=== PATIENT | female | born 1965 | race Caucasian/White ===

== ENCOUNTER 2023-06-20 09:59 | Outpatient (REF) | payer OTHER, SELFPAY ==
[2023-06-20 12:07] LABS: MANUAL DIFF FLAG NO
[2023-06-20 12:13] LABS: Basophils Percent Auto 0.4 % (0-2); Eosinophils Absolute Auto 0.1 X10*3/uL (0.0-0.4); Eosinophils Percent Auto 1.7 % (0-4); Hemoglobin 13.8 g/dl (12.0-16.0); Imm Gran Abs Auto 0.01 X10*3/uL (0.00-0.03); Imm Gran Pct Auto 0.2 % (0.0-0.4); Lymphocytes Absolute Auto 2.2 X10*3/uL (1.2-4.9); Mean Corpuscular HGB Conc 33.7 g/dl (31.0-35.0); Mean Corpuscular Hemoglobin 31.1 pg (27.0-33.0); Mean Corpuscular Volume 92.3 fL (80.0-98.0); Monocytes Absolute Auto 0.4 X10*3/uL (0.1-1.2); Monocytes Percent Auto 7.8 % (2-11); Neutrophils Absolute Auto 2.6 x10*3/uL (2.0-8.3); Neutrophils Percent Auto 48.9 % (45-73); Platelet Count 373 X10*3/uL (160-400); Red Blood Count 4.44 X10*6/uL (4.20-5.50); Red Cell Distribution Width 12.2 % (11.0-16.0); White Blood Count 5.4 X10*3/uL (4.8-10.8)
[2023-06-20 12:54] LABS: Erythrocyte Sedimentation Rate 2 MM/HR (0-20)
[2023-06-21 11:59] LABS: Immunoglobulin G Subclass 1 439 mg/dL (382-929); Immunoglobulin G Subclass 2 317 mg/dL (241-700); Immunoglobulin G Subclass 3 19 mg/dL (22-178); Immunoglobulin G Subclass 4 29.7 mg/dL (4-86); Immunoglobulin G Total 825 mg/dL (600-1640)
[2023-06-21 12:24] LABS: Cyclic Citrullinated Peptide <16 UNITS
[2023-06-21 17:03] LABS: IgA 257 mg/dL (47-310); IgG 929 mg/dL (600-1640); IgM 74 mg/dL (50-300)
[2023-06-21 23:03] LABS: Immunoglobulin E 133 kU/L (<OR=114)
[2023-06-25 14:23] LABS: Anti Nuclear Antibody Screen NEGATIVE (NEGATIVE)
[2023-06-27 15:24] LABS: Asperg fumigatus Precip Abs NEGATIVE (NEGATIVE); Micropoly faeni Abs NEGATIVE (NEGATIVE); Pigeon serum Abs NEGATIVE (NEGATIVE); Saccharo pora viridis Abs NEGATIVE (NEGATIVE); Thermo candidus Abs NEGATIVE (NEGATIVE); Thermoa vulgaris #1 NEGATIVE (NEGATIVE)
== END 2023-06-20 10:00 | disposition home or self-care (01) ==
LOC: HO.LAB 09:59
PROVIDERS: PCP Internal Medicine; Visit Provider Hospitalist
DX: J18.9 Pneumonia, unspecified organism (principal); J45.909 Unspecified asthma, uncomplicated; R91.8 Other nonspecific abnormal finding of lung field; J45.40 Moderate persistent asthma, uncomplicated
CPT/HCPCS: 36415; 82784; 82785; 85025; 85652; 86003; 86038; 86200; 86331; 86606; 86609; 87070; 87205; 94640

== ENCOUNTER 2023-06-20 09:59 | Outpatient (AMB) | payer OTHER, SELFPAY ==
[2023-06-20 10:35] VITALS: BP 128/70; PULSE 63; O2SAT 100; BMI 23.9
--- NOTE | 2023-06-20 10:35 | A.OFFVIS_ITS ---
Intake Vital Signs 06/20/23 10:35 Height 5 ft Weight 122 lb 5.705 oz BMI 23.9 BP 128/70 Blood Pressure Location Lt brachial Position Sitting Pulse 63 Pulse Source Pulse Oximeter Pulse Oximetry (%) 100 Oxygen Delivery Method Room Air Intake Visit Reasons: Pneumonitis Mixing Operator Required: No Allergies amoxicillin Adverse Reaction (Severe, Verified 06/20/23 10:38) Hives HPI HPI Comments History of Present Illness Details The patient is here for pulmonary evaluation. The patient is a 58 year woman who presents with frequent pneumonia on respiratory complaints. Patient states that she was in usual state health until for the last few years she has been having off and on respiratory issues. However, the become more frequent and more severe. She was evaluated sometime in December 2022 at at [facility] for worsening respiratory symptoms. There she had a chest x-ray to demonstrating bilateral patchy airspace disease. She was given antibiotics and also prednisone. Her symptoms did improve. Few months later her symptoms started again with worsening cough shortness of breath in addition to hoarseness. At this point she went to [facility] which she did have a CTA. The CTA again confirm pneumonia. The patient again was treated this time only with prednisone. Her symptoms did improve. Now the patient has been off prednisone and she does have a rescue inhaler. The patient also had been using a nebulizer. She has been noticing for the last few days her symptoms are again returning. Feels of some chest congestion cough and hoarseness. The patient is a nonsmoker. She does state that her mom has significant bronchitis as well. Denies any new exposure to any fumes or toxins animals farms or construction or demolition. In the office we did provide her with a nebulized treatment however we were able to get an adequate specimen. Will going to go ahead and request blood work to assess her frequent bronchitis. I explained to the patient that we need to further evaluate the possibility of infectious pneumonia versus noninfectious inflammatory pneumonia such as cryptogenic organizing pneumonia. [facility] Medical History (Updated 06/20/23 @ 23:36 by Benny Fernandez MD) Asthma Pneumonia Pneumonitis Social History (Updated 06/20/23 @ 10:39 by MATHEW Lee) Patient Tobacco Use Status: Former Tobacco user Tobacco use type: Cigarette Years Smoked: 5 Years Review of Systems Const Denies body aches, Denies fatigue and Denies fever(s) ENT Reports hoarseness Card Denies chest pain Resp Reports chest congestion, Reports cough and Reports wheezing GI Reports no additional complaints Musc Reports no additional complaints Skin/Breast Denies rash Neuro Reports no additional complaints Endo Denies fatigue and Denies flushing Mu/Lymph Denies lymphadenopathy Aller/Immun Reports wheezing Physical Exam Vital Signs: Last Vital Signs Pulse 63 06/20/23 10:35 BP 128/70 06/20/23 10:35 Pulse Ox 100 06/20/23 10:35 Oxygen Delivery Method Room Air 06/20/23 10:35 BMI result Body Mass Index 23.9 Const General: comfortable HEENT Head: Yes atraumatic Neck Neck: Yes supple Chest Chest palpation & inspection: normal inspection of the chest Resp Effort & Inspection: normal respiratory effort Auscultation: no rhonchi, no wheezes and diminished lung sounds Cardio Rate: regular rate Rhythm: regular rhythm Heart sounds: S1 normal heart sound present and S2 normal heart sound present GI Inspection: Yes normal to inspection Skin General skin exam: no rashes or lesions noted Extrem General: Yes no clubbing, cyanosis or edema Office Procedures Nebulizer Treatment Nebulizer Treatment [id number]/[id number] RX initial, or Nebulizer Subsequent Treatment Office Meds levalbuterol HCl Performing Provider: Benny Fernandez MD Administered by: Lavern Cortes LPN on 06/20/23 11:11 Dose Route Admin Location Lot Number Expiration Date [employer] 1.25 mg inhalation [id number] 05/04/24 54733-623-15 sodium chloride Performing Provider: Benny Fernandez MD Administered by: Lavern Cortes LPN on 06/20/23 11:11 Dose Route Admin Location Lot Number Expiration Date [employer] 3 mL inhalation [id number] 12/05/23 [id number] [employer] Assessment & Plan Assessment & Plan (1) Pneumonitis: Code(s): J18.9 - Pneumonia, unspecified organism (2) Asthma: Code(s): J45.909 - Unspecified asthma, uncomplicated Qualifiers: Asthma severity: moderate Asthma persistence: persistent Asthma complication type: uncomplicated Qualified Code(s): J45.40 - Moderate persistent asthma, uncomplicated (3) Pneumonia: Code(s): J18.9 - Pneumonia, unspecified organism Qualifiers: Pneumonia type: due to unspecified organism Laterality: bilateral Lung location: unspecified part of lung Qualified Code(s): J18.9 - Pneumonia, unspecified organism Plan start Symbicort consider nebulizer with acapella valve for CPT MAHESH as needed Bloodwork sputum cx, consider bronchoscopy F/U 3-4 weeks Orders: Orders Cyclic Citrullinated Peptide Today J18.9 - Pneumonia, unspecified organism, J45.909 - Unspecified asthma, uncomplicated Rast Allergen Today J18.9 - Pneumonia, unspecified organism, J45.909 - Unspecified asthma, uncomplicated Complete Blood Count Auto Diff Today J18.9 - Pneumonia, unspecified organism, J4 5.909 - Unspecified asthma, uncomplicated Erythrocyte Sedimentation Rate Today J18.9 - Pneumonia, unspecified organism, J45.909 - Unspecified asthma, uncomplicated SWAPNIL Reflex Titer and Pattern Today J18.9 - Pneumonia, unspecified organism, J45.909 - Unspecified asthma, uncomplicated Hypersensitive Pneumonitis Prf Today J18.9 - Pneumonia, unspecified organism, J45.909 - Unspecified asthma, uncomplicated, R91.8 - Other nonspecific abnormal finding of lung field Immunoglobulin E Today J18.9 - Pneumonia, unspecified organism, J45.909 - Unspecified asthma, uncomplicated Immunoglobulin G Subclasses Today J18.9 - Pneumonia, unspecified organism, J45.909 - Unspecified asthma, uncomplicated Immunoglobulins,IgG IgA IgM Today J18.9 - Pneumonia, unspecified organism, J45.909 - Unspecified asthma, uncomplicated Sputum Cult + Gram stain Today J18.9 - Pneumonia, unspecified organism AMB Nebulizer Treatment Today J45.909 - Unspecified asthma, uncomplicated Medications: New budesonide-formoterol 160-4.5 mcg/actuation (Symbicort) 2 puffs inhalation BID 30 days 10.2 grams 11RF J18.9 - Pneumonia, unspecified organism, J44.9 - Chronic obstructive pulmonary disease, unspecified Coding Level of Care Code New Pt Level 4 (23088) Diagnoses Pneumonitis J18.9 Asthma J45.40 Asthma severity: moderate Asthma persistence: persistent Asthma complication type: uncomplicated Pneumonia J18.9 Pneumonia type: due to unspecified organism Laterality: bilateral Lung location: unspecified part of lung CPT Codes Nebulizer Treatment - Nebulizer Treatment, initial or subsequent: [id number] Nebulizer/MDI RX initial, or Nebulizer Subsequent Treatment ([id number]) Time Spent (min) 40
== END 2023-06-20 11:29 | disposition home or self-care (01) ==
PROVIDERS: PCP Internal Medicine; Visit Provider Hospitalist
DX: J45.909 Unspecified asthma, uncomplicated (principal)
CPT/HCPCS: 99204

== ENCOUNTER 2023-08-02 09:39 | Outpatient (REF) | payer OTHER, SELFPAY ==
--- NOTE | ~2023-08-02 | XR_ITS ---
EXAMINATION: XR CHEST CLINICAL INFORMATION: Pneumonia COMPARISON: None available. TECHNIQUE: 2 views of the chest were obtained. FINDINGS: No significant abnormality is noted involving the heart, lungs, mediastinum, bony thorax or soft tissues. XR/XR chest 2V IMPRESSION: Unremarkable examination.
== END 2023-08-02 09:40 | disposition home or self-care (01) ==
LOC: HO.XRAY 09:39
PROVIDERS: Visit Provider Hospitalist
DX: J18.9 Pneumonia, unspecified organism (principal)
CPT/HCPCS: 71046

== ENCOUNTER 2023-08-02 09:57 | Outpatient (AMB) | payer OTHER, SELFPAY ==
--- NOTE | 2023-08-02 10:07 | A.OFFVIS_ITS ---
Intake Vital Signs 08/02/23 10:12 Height 5 ft Weight 125 lb 10.616 oz BMI 24.5 BP 128/60 Blood Pressure Location Lt brachial Position Sitting Pulse 71 Pulse Source Pulse Oximeter Pulse Oximetry (%) 97 Oxygen Delivery Method Room Air Intake Visit Reasons: Pneumonitis/Covid+ Allergies amoxicillin Adverse Reaction (Severe, Verified 08/02/23 10:16) Hives HPI HPI Comments History of Present Illness Details The patient is a 58 year woman who presents with frequent pneumonia on respiratory complaints. Patient states that she was in usual state health until for the last few years she has been having off and on respiratory issues. However, the become more frequent and more severe. She was evaluated sometime in December 2022 at at [facility] for worsening respiratory symptoms. There she had a chest x-ray to demonstrating bilateral patchy airspace disease. She was given antibiotics and also prednisone. Her symptoms did improve. Few months later her symptoms started again with worsening cough shortness of breath in addition to hoarseness. At this point she went to [facility] which she did have a CTA. The CTA again confirm pneumonia. The patient again was treated this time only with prednisone. Her symptoms did improve. Now the patient has been off prednisone and she does have a rescue inhaler. The patient also had been using a nebulizer. She has been noticing for the last few days her symptoms are again returning. Feels of some chest congestion cough and hoarseness. The patient is a nonsmoker. She does state that her mom has significant bronchitis as well. Denies any new exposure to any fumes or toxins animals farms or construction or demolition. In the office we did provide her with a nebulized treatment however we were able to get an adequate specimen. Will going to go ahead and request blood work to assess her frequent bronchitis. I explained to the patient that we need to further evaluate the possibility of infectious pneumonia versus noninfectious inf lammatory pneumonia such as cryptogenic organizing pneumonia. 08/02/2023 the patient is here for a pulm onary follow-up visit. Unfortunately recently she gets sick with COVID the beginning of July. Now the patient is better overall but still having significant chest congestion chest tightness and raspiness of voice. The Symbicort has been helpful but it does cause increased hoarseness. She also has a nebulizer that she uses as needed. She does have productive cough but is whitish in clear in nature. The patient did have blood work that we personally reviewed demonstrating abnormal immune system except for slight decrease in the subclass 3 of the IgG in the patient does have an elevated IgE suggesting allergies. The patient is eosinophil levels are within normal limits and other white blood cell images are would also within normal limits. Her hypersensitivity panels negative. I could not evaluate her CT scan because the images did not open up but I did request the report and apparently it did say that the lung parenchyma was clear without any evidence of any airspace disease. Therefore much sure if she had any other imaging studies prior to that that showed that she had pneumonia. For the patient's own fairly well but she is having post COVID reactive airway disease with some wheezing on examination and likely at risk for a postviral bacterial infection. Therefore will restart her on doxycycline and she should use her nebulizer. If she is no better she will start a Medrol pack. [facility] Medical History (Updated 08/02/23 @ 20:26 by Benny Fernandez MD) Pneumonitis Asthma Pneumonia Social History (Updated 06/20/23 @ 10:39 by Socorro Rascon George) Patient Tobacco Use Status: Former Tobacco user Tobacco use type: Cigarette Years Smoked: 5 Years Review of Systems Const Denies body aches, Denies fatigue and Denies fever(s) ENT Reports hoarseness Card Denies chest pain Resp Reports change in phlegm color, Reports chest congestion, Reports cough and Reports wheezing GI Reports no additional complaints Musc Reports no additional complaints Skin/Breast Denies rash Neuro Reports no additional complaints Endo Denies fatigue and Denies flushing Mu/Lymph Denies lymphadenopathy Aller/Immun Reports wheezing Physical Exam Vital Signs: Last Vital Signs Pulse 71 08/02/23 10:12 BP 128/60 08/02/23 10:12 Pulse Ox 97 08/02/23 10:12 Oxygen Delivery Method Room Air 08/02/23 10:12 BMI result Body Mass Index 24.5 Const General: comfortable HEENT Head: Yes atraumatic Neck Neck: Yes supple Chest Chest palpation & inspection: normal inspection of the chest Resp Effort & Inspection: normal respiratory effort Auscultation: no rhonchi, wheezes and diminished lung sounds Cardio Rate: regular rate Rhythm: regular rhythm Heart sounds: S1 normal heart sound present and S2 normal heart sound present GI Inspection: Yes normal to inspection Skin General skin exam: no rashes or lesions noted Extrem General: Yes no clubbing, cyanosis or edema Assessment & Plan Assessment & Plan (1) Pneumonitis: Code(s): J18.9 - Pneumonia, unspecified organism (2) Asthma: Code(s): J45.909 - Unspecified asthma, uncomplicated Qualifiers: Asthma complication type: uncomplicated Asthma persistence: persistent Asthma severity: moderate Qualified Code(s): J45.40 - Moderate persistent asthma, uncomplicated (3) COVID-19: Code(s): U07.1 - COVID-19 Plan continue Symbicort continue nebulizer consider acapella valve for CPT MAHESH as needed start Doxycycline start Medrol if no better F/U 4-6 months Medications: New doxycycline hyclate 100 mg PO BID 10 days 20 caps 0RF methylprednisolone (Medrol (Vikram)) PO PER PKG DIR 6 days 21 ea 0RF Coding Level of Care Code Est Pt Level 4 (72908) Diagnoses Pneumonitis J18.9 Moderate persistent asthma without complication J45.40 Asthma complication type: uncomplicated Asthma persistence: persistent Asthma severity: moderate COVID-19 U07.1 Time Spent (min) 17
[2023-08-02 10:12] VITALS: BP 128/60; PULSE 71; O2SAT 97; BMI 24.5
== END 2023-08-02 10:48 | disposition home or self-care (01) ==
PROVIDERS: PCP Internal Medicine; Visit Provider Hospitalist
DX: J18.9 Pneumonia, unspecified organism (principal); J45.40 Moderate persistent asthma, uncomplicated; U07.1 COVID-19
CPT/HCPCS: 99214

== ENCOUNTER 2023-10-16 14:27 | Outpatient (AMB) | payer OTHER, SELFPAY ==
[2023-10-16 15:10] VITALS: BP 102/62; PULSE 76; O2SAT 97; BMI 25.6
--- NOTE | 2023-10-16 15:10 | MHC.OFFVIS ---
Intake Vital Signs 10/16/23 15:10 Height 5 ft Weight 131 lb 2.801 oz BMI 25.6 BP 102/62 Blood Pressure Location Lt brachial Position Sitting Pulse 76 Pulse Source Doppler Pulse Oximetry (%) 97 Oxygen Delivery Method Room Air Intake Visit Reasons: productive cough/wheeze Allergies amoxicillin Adverse Reaction (Severe, Verified 10/16/23 15:14) Hives HPI HPI Comments History of Present Illness Details The patient is a 58 year woman who presents with frequent pneumonia on respiratory complaints. Patient states that she was in usual state health until for the last few years she has been having off and on respiratory issues. However, the become more frequent and more severe. She was evaluated sometime in December 2022 at at [facility] for worsening respiratory symptoms. There she had a chest x-ray to demonstrating bilateral patchy airspace disease. She was given antibiotics and also prednisone. Her symptoms did improve. Few months later her symptoms started again with worsening cough shortness of breath in addition to hoarseness. At this point she went to [facility] which she did have a CTA. The CTA again confirm pneumonia. The patient again was treated this time only with prednisone. Her symptoms did improve. Now the patient has been off prednisone and she does have a rescue inhaler. The patient also had been using a nebulizer. She has been noticing for the last few days her symptoms are again returning. Feels of some chest congestion cough and hoarseness. The patient is a nonsmoker. She does state that her mom has significant bronchitis as well. Denies any new exposure to any fumes or toxins animals farms or construction or demolition. In the office we did provide her with a nebulized treatment however we were able to get an adequate specimen. Will going to go ahead and request blood work to assess her frequent bronchitis. I explained to the patient that we need to further evaluate the possibility of infectious pneumonia versus noninfectious inflammatory pneumonia such as cryptogenic organizing pneumonia. 08/02/2023 the patient is here for a pulmonary follow-up visit. Unfortunately recently she gets sick with COVID the beginning of July. Now the patient is better overall but still having significant chest congestion chest tightness and raspiness of voice. The Symbicort has been helpful but it does cause increased hoarseness. She also has a nebulizer that she uses as needed. She does have productive cough but is whitish in clear in nature. The patient did have blood work that we personally reviewed demonstrating abnormal immune system except for slight decrease in the subclass 3 of the IgG in the patient does have an elevated IgE suggesting allergies. The patient is eosinophil levels are within normal limits and other white blood cell images are would also within normal limits. Her hypersensitivity panels negative. I could not evaluate her CT scan because the images did not open up but I did request the report and apparently it did say that the lung parenchyma was clear without any evidence of any airspace disease. Therefore much sure if she had any other imaging studies prior to that that showed that she had pneumonia. For the patient's own fairly well but she is having post COVID reactive airway disease with some wheezing on examination and likely at risk for a postviral bacterial infection. Therefore will restart her on doxycycline and she should use her nebulizer. If she is no better she will start a Medrol pack. 10/16/2023 the patient is here for a pulmonary follow-up visit. She had been doing a tiny bit better but then started getting worse again about a week ago with increased hoarseness of the voice chest congestion raspiness of voice and she is not feeling great. She does complaint of sinus pressure. She is concerned that she is having this issue. We did talk about her immunological levels. Her immune system is strong her IgG subclass 3 is a little low but not enough to warrant any significant therapies. Her IgE suggest some degree of allergies but unlikely to be enough to cause her to have these recurrent infections. Her lungs actually sound clear it sounds to be more of a sinusitis and laryngotracheitis. The patient does respond well to Levaquin. Therefore I will send some Levaquin. She does take citalopram that she may have to cut that to half a dose while she is taking the quinolone therapy. She also is aware of the tendinitis and she will stop the medicine if she develops any time there tendons. The patient also will take probiotics to minimize C diff colitis. If she is no better that she can call we can request a CT scan of the sinuses. She may need to be evaluated by ENT as well this point specially since it appears to be more upper respiratory. [facility] Medical History (Updated 10/16/23 @ 19:30 by Benny Fernandez MD) Pneumonitis Asthma Pneumonia Social History Patient Tobacco Use Status: Former Tobacco user Tobacco use type: Cigarette Years Smoked: 5 Years Review of Systems Const Denies body aches, Denies fatigue and Denies fever(s) ENT Reports hoarseness, Reports nasal congestion, Reports nasal discharge, Reports post nasal drip, Reports sinus pain and Reports sinus pressure Card Denies chest pain Resp Reports change in phlegm color, Reports chest congestion, Reports cough and Denies wheezing GI Reports no additional complaints Musc Reports no additional complaints Skin/Breast Denies rash Neuro Reports no additional complaints Endo Denies fatigue and Denies flushing Mu/Lymph Denies lymphadenopathy Aller/Immun Denies wheezing Physical Exam Vital Signs: Last Vital Signs Pulse 76 10/16/23 15:10 BP 102/62 10/16/23 15:10 Pulse Ox 97 10/16/23 15:10 Oxygen Delivery Method Room Air 10/16/23 15:10 BMI result Body Mass Index 25.6 Const General: comfortable HEENT Head: Yes atraumatic Neck Neck: Yes supple Chest Chest palpation & inspection: normal inspection of the chest Resp Effort & Inspection: normal respiratory effort Auscultation: no rhonchi, wheezes and diminished lung sounds Cardio Rate: regular rate Rhythm: regular rhythm Heart sounds: S1 normal heart sound present and S2 normal heart sound present GI Inspection: Yes normal to inspection Skin General skin exam: no rashes or lesions noted Extrem General: Yes no clubbing, cyanosis or edema Assessment & Plan Assessment & Plan (1) Asthma: Code(s): J45.909 - Unspecified asthma, uncomplicated Qualifiers: Asthma complication type: uncomplicated Asthma persistence: persistent Asthma severity: moderate Qualified Code(s): J45.40 - Moderate persistent asthma, uncomplicated (2) Sinusitis: Code(s): J32.9 - Chronic sinusitis, unspecified Qualifiers: Sinusitis location: maxillary Chronicity: subacute Qualified Code(s): J01.00 - Acute maxillary sinusitis, unspecified Plan Start Levaquin start Pseudophed nasal rinsing with neti bottle consider CT sinuses continue Symbicort continue nebulizer consider acapella valve for CPT MAHESH as needed start Medrol if no better F/U 2-3 months Orders: Orders SARS-CoV2/FLU/RSV Today J32.9 - Chronic sinusitis, unspecified Medications: New levofloxacin 500 mg PO DAILY 14 days 14 tabs 0RF pseudoephedrine HCl ER 120 mg PO Q12H 30 days 60 tabs 1RF Coding Level of Care Code Est Pt Level 4 (29253) Diagnoses Moderate persistent asthma without complication J45.40 Asthma complication type: uncomplicated Asthma persistence: persistent Asthma severity: moderate Subacute maxillary sinusitis J01.00 Sinusitis location: maxillary Chronicity: subacute Time Spent (min) 18
== END 2023-10-16 15:38 | disposition home or self-care (01) ==
PROVIDERS: PCP Internal Medicine; Visit Provider Hospitalist
DX: J45.40 Moderate persistent asthma, uncomplicated (principal); J01.00 Acute maxillary sinusitis, unspecified
CPT/HCPCS: 99214

== ENCOUNTER 2023-10-16 14:27 | Outpatient (REF) | payer OTHER, SELFPAY ==
[2023-10-16 19:48] LABS: Influenza A PCR NEGATIVE (Negative); Influenza B PCR NEGATIVE (Negative); Resp Syncy Virus RNA Qual PCR NEGATIVE (Negative); SARS COV2 PCR INHOUSE NEGATIVE (Negative)
== END 2023-10-16 14:28 | disposition home or self-care (01) ==
LOC: CF 14:27
PROVIDERS: PCP Internal Medicine; Visit Provider Hospitalist
DX: Z11.52 Encounter for screening for COVID-19 (principal); J32.9 Chronic sinusitis, unspecified; J45.40 Moderate persistent asthma, uncomplicated; Z20.822 Contact with and (suspected) exposure to COVID-19
CPT/HCPCS: 0241U

== ENCOUNTER 2024-12-19 15:17 | Outpatient (AMB) | payer OTHER, SELFPAY ==
[2024-12-19 15:21] VITALS: BP 128/82; PULSE 78; O2SAT 98; BMI 26.5
--- NOTE | 2024-12-19 15:21 | MHC.OFFVIS ---
Vital Signs 12/19/24 15:21 Height 5 ft Weight 135 lb 9.349 oz BMI 26.5 BP 128/82 Blood Pressure Location Lt brachial Position Sitting Pulse 78 Pulse Source Pulse Oximeter Pulse Oximetry (%) 98 Oxygen Delivery Method Room Air Intake Visit Reasons: Asthma Allergies amoxicillin Adverse Reaction (Severe, Verified 12/19/24 15:23) Hives HPI Comments Details: The patient is a 59 year woman who presents with frequent pneumonia on respiratory complaints. Patient states that she was in usual state health until for the last few years she has been having off and on respiratory issues. However, the become more frequent and more severe. She was evaluated sometime in December 2022 at at [facility] for worsening respiratory symptoms. There she had a chest x-ray to demonstrating bilateral patchy airspace disease. She was given antibiotics and also prednisone. Her symptoms did improve. Few months later her symptoms started again with worsening cough shortness of breath in addition to hoarseness. At this point she went to [facility] which she did have a CTA. The CTA again confirm pneumonia. The patient again was treated this time only with prednisone. Her symptoms did improve. Now the patient has been off prednisone and she does have a rescue inhaler. The patient also had been using a nebulizer. She has been noticing for the last few days her symptoms are again returning. Feels of some chest congestion cough and hoarseness. The patient is a nonsmoker. She does state that her mom has significant bronchitis as well. Denies any new exposure to any fumes or toxins animals farms or construction or demolition. In the office we did provide her with a nebulized treatment however we were able to get an adequate specimen. Will going to go ahead and request blood work to assess her frequent bronchitis. I explained to the patient that we need to further evaluate the possibility of infectious pneumonia versus noninfectious inflammatory pneumonia such as cryptogenic organizing pneumonia. 08/02/2023 the patient is here for a pulmonary follow-up visit. Unfortunately recently she gets sick with COVID the beginning of July. Now the patient is better overall but still having significant chest congestion chest tightness and raspiness of voice. The Symbicort has been helpful but it does cause increased hoarseness. She also has a nebulizer that she uses as needed. She does have productive cough but is whitish in clear in nature. The patient did have blood work that we personally reviewed demonstrating abnormal immune system except for slight decrease in the subclass 3 of the IgG in the patient does have an elevated IgE suggesting allergies. The patient is eosinophil levels are within normal limits and other white blood cell images are would also within normal limits. Her hypersensitivity panels negative. I could not evaluate her CT scan because the images did not open up but I did request the report and apparently it did say that the lung parenchyma was clear without any evidence of any airspace disease. Therefore much sure if she had any other imaging studies prior to that that showed that she had pneumonia. For the patient's own fairly well but she is having post COVID reactive airway disease with some wheezing on examination and likely at risk for a postviral bacterial infection. Therefore will restart her on doxycycline and she should use her nebulizer. If she is no better she will start a Medrol pack. 10/16/2023 the patient is here for a pulmonary follow-up visit. She had been doing a tiny bit better but then started getting worse again about a week ago with increased hoarseness of the voice chest congestion raspiness of voice and she is not feeling great. She does complaint of sinus pressure. She is concerned that she is having this issue. We did talk about her immunological levels. Her immune system is strong her IgG subclass 3 is a little low but not enough to warrant any significant therapies. Her IgE suggest some degree of allergies but unlikely to be enough to cause her to have these recurrent infections. Her lungs actually sound clear it sounds to be more of a sinusitis and laryngotracheitis. The patient does respond well to Levaquin. Therefore I will send some Levaquin. She does take citalopram that she may have to cut that to half a dose while she is taking the quinolone therapy. She also is aware of the tendinitis and she will stop the medicine if she develops any time there tendons. The patient also will take probiotics to minimize C diff colitis. If she is no better that she can call we can request a CT scan of the sinuses. She may need to be evaluated by ENT as well this point specially since it appears to be more upper respiratory. 12/19/2024 the patient is here for a pulmonary follow-up visit. The patient has been doing well. Since we saw her she did need to take a course of Medrol and also levofloxacin for respiratory infection. That happened back in the fall. After that she did okay. The patient continues to use her respiratory inhalers as prescribed. She did have a chest x-ray last visit which demonstrated no acute disease. And prior to that she had a CT scan at [facility] which demonstrating no acute disease and no pulmonary nodules or parenchymal disease to have to follow. Therefore since the patient is doing well will follow-up in a year's time with a chest x-ray. If she has any issues prior to that she will call for an earlier assessment. [facility] Medical History (Updated 12/22/24 @ 13:45 by Benny Fernandez MD) Pneumonitis Asthma Pneumonia Social History Patient Tobacco Use Status: Former Tobacco user Tobacco use type: Cigarette Years Smoked: 5 Years Review of Systems Const Denies body aches, Denies fatigue and Denies fever(s) ENT Reports nasal congestion, Reports nasal discharge and Reports post nasal drip Card Denies chest pain Resp Reports cough and Denies wheezing GI Reports no additional complaints Musc Reports no additional complaints Skin/Breast Denies rash Neuro Reports no additional complaints Endo Denies fatigue and Denies flushing Mu/Lymph Denies lymphadenopathy Aller/Immun Denies wheezing Physical Exam Vital Signs: Last Vital Signs Pulse 78 12/19/24 15:21 BP 128/82 12/19/24 15:21 Pulse Ox 98 12/19/24 15:21 Oxygen Delivery Method Room Air 12/19/24 15:21 BMI result Body Mass Index 26.5 Const General: comfortable HEENT Head: Yes atraumatic Neck Neck: Yes supple Chest Chest palpation & inspection: normal inspection of the chest Resp Effort & Inspection: normal respiratory effort Auscultation: no rhonchi, no wheezes and diminished lung sounds Cardio Rate: regular rate Rhythm: regular rhythm Heart sounds: S1 normal heart sound present and S2 normal heart sound present GI Inspection: Yes normal to inspection Skin General skin exam: no rashes or lesions noted Extrem General: Yes no clubbing, cyanosis or edema Assessment & Plan Assessment & Plan (1) Asthma: Code(s): J45.909 - Unspecified asthma, uncomplicated Category: Medical Qualifiers: Asthma complication type: uncomplicated Asthma persistence: persistent Asthma severity: moderate Qualified Code(s): J45.40 - Moderate persistent asthma, uncomplicated (2) Sinusitis: Comment: better Code(s): J32.9 - Chronic sinusitis, unspecified Category: Medical Qualifiers: Chronicity: subacute Sinusitis location: maxillary Qualified Code(s): J01.00 - Acute maxillary sinusitis, unspecified Plan nasal rinsing with neti bottle continue Symbicort continue nebulizer consider acapella valve for CPT MAHESH as needed F/U 8-12 months Medications: New doxycycline hyclate 100 mg PO BID 10 days 20 caps 0RF methylprednisolone (Medrol (Vikram)) PO PER PKG DIR 6 days 21 ea 0RF Coding Level of Care Code Est Pt Level 4 (75914) Diagnoses Moderate persistent asthma without complication J45.40 Asthma complication type: uncomplicated Asthma persistence: persistent Asthma severity: moderate Subacute maxillary sinusitis J01.00 Chronicity: subacute Sinusitis location: maxillary Time Spent (min) 16
== END 2024-12-19 15:45 | disposition home or self-care (01) ==
PROVIDERS: PCP Internal Medicine; Visit Provider Hospitalist
DX: J45.40 Moderate persistent asthma, uncomplicated (principal); J01.00 Acute maxillary sinusitis, unspecified
CPT/HCPCS: 99214